=== PATIENT | male | born 1975 | race Caucasian/White ===

== ENCOUNTER 2018-04-19 06:29 | Observation (INO) ==
[2018-04-19] MEDS ORDERED: DILAUDID IV ONE ×2 (06:45→09:25)
[2018-04-19] MEDS ORDERED: ZOFRAN IV ONE (06:45)
[2018-04-19] MEDS ORDERED: NS 1,000 ML IV ONE ×2 (06:45→09:26)
--- NOTE | 2018-04-19 06:47 | PROVIDER DOCUMENTATION ---
HPI-Abdominal Pain/GI Problem - General Chief Complaint: Abdominal Pain Stated Complaint: INTESTIAL BLOCKAGE Time Seen by Provider: 04/19/18 06:41 Source: patient Allergies/Adverse Reactions: Patient Allergies Allergy/AdvReac Type Severity Reaction Status Date / Time morphine AdvReac ITCHING Verified 09/26/17 16:36 Home Medications: Home Medication List Medication Instructions Recorded Confirmed Last Taken Type Hydrocodone/APAP 7.5 mg/325 mg 1 each PO PRN PRN 09/25/17 09/25/17 1 Week Ago History [Wilson-7.5] ~09/18/17 Naproxen 500 mg PO BID PRN PRN #30 tablet 09/25/17 Unknown Rx Pregabalin [Lyrica] 0 mg PO DAILY 09/25/17 09/25/17 3 Weeks Ago History ~09/04/17 Calcium Carbonate/Vitamin D3 1 each PO DAILY #30 tablet 09/26/17 Unknown Rx [Calcium 500 + Vit D 400 Tablet] - History of Present Illness-ABD Nature of Presenting Problems: abdominal pain and no output per ostomy since yesterday. similar to previous bowel obstruction. no fever. nausea, no vomiting Abdominal Pain Onset Location: reports: generalized abdomen Pain Radiation: reports: no radiation Quality of Pain: reports: aching Severity in ED: reports: moderate Onset/Duration: reports: 24 hours ago Timing: reports: still present Activities at Onset: reports: none Exposure to sick contacts?: No Modifying Factors: improves with: nothing Associated Symptoms: denies: chest pain, fever/chills, shortness of breath Last BM: last night Rectal Bleeding: reports: none Review of Systems - Adult - REVIEW OF SYSTEMS - ADULT Constitutional: reports: no symptoms reported Cardiovascular: reports: no symptoms reported Respiratory: reports: no symptoms reported Gastrointestinal: reports: see HPI Genitourinary: reports: no symptoms reported All Other Systems: Reviewed and Negative Past History - Adult - PAST MEDICAL HISTORY-ADULT Review of Records: reports: Nursing Assessment Review, Medications Reviewed, Social history reviewed & non-contributory. Major Childhood Illnesses: reports: denies history Cardiovascular: reports: denies history Respiratory: reports: denies history Gastrointestinal: reports: colitis Musculoskeletal: reports: other (carpat tunnel syndrome) Psychiatric: reports: denies history Endocrine/Immune: reports: denies history - PRIOR SURGERIES/PROCEDURES Surgical/Procedure History: reports: other (colon reversal) - IMMUNIZATION STATUS Childhood Immunizations: See Nurse Assessment Flu Vaccine: See Nurse Assessment - FAMILY HISTORY Family History: reviewed, not pertinent - SOCIAL HISTORY Substance Use: none/never Physical Exam-General - PHYSICAL EXAM-ADULT Initial Vital Signs Reviewed: Yes - CONSTITUTIONAL General Appearance: appears well, alert - EYES Eyes: PERRL/EOMI - HEAD, EARS, NOSE, MOUTH & THROAT HENMT: moist mucous membranes, normal ENT inspection - NECK Neck: non-tender, full range of motion, supple - RESPIRATORY Respiratory: chest non-tender, lungs clear, normal breath sounds, no respiratory distress - CARDIOVASCULAR Cardiovascular: normal peripheral pulses, regular rate, rhythm, no edema, no murmur - GASTROINTESTINAL (ABDOMEN) Abdominal Exam: tenderness (moderate, diffuse), other (decreased bowel sounds. ostomy present, no stool) - MUSCULOSKELETAL Back Exam: normal inspection Extremity: normal range of motion - SKIN Integumentary: normal color, normal turgor, warm/dry - NEUROLOGIC Neurologic: no motor/sensory deficits Progress - PLAN OF CARE/RESULTS Progress/Plan/Lab Results: Vital Signs - 8 hr 04/19/18 06:34 Temperature 98.1 F Pulse Rate 107 H Respiratory Rate 20 Blood Pressure 129/93 O2 Sat by Pulse Oximetry 99 Orders Category Date Time Status NPO Diet 04/19/18 06:[address] ABD/PELVIS W/IV CONT ONLY [CT] Stat Exams 04/19/18 06:46 Ordered CBC WITH DIFF [HEME] Stat Lab 04/19/18 06:46 Uncollected COMPREHENSIVE METABOLIC PANEL [CHEM] Stat Lab 04/19/18 06:46 Uncollected PROTIME WITH INR [COAG] Stat Lab 04/19/18 06:46 Uncollected PTT [COAG] Stat Lab 04/19/18 06:46 Uncollected Hydromorphone [Dilaudid] Med 04/19/18 06:45 Once 1 mg IV NOW ONE Ns 1000 ml IV Bolus X1 Med 04/19/18 06:45 Ordered 0.9% Sodium Chloride Inj [Ns] 1,000 ml IV 999 mls/hr Ondansetron [Zofran] Med 04/19/18 06:45 Once 4 mg IV NOW ONE Result Diagrams: 04/19/18 07:30 04/19/18 07:30 - REASSESSMENT Reassessment #1 Time Reassessed: 10:31 Status: improving (CT NEG FOR BOWEL OBSTRUCTION. STILL IN MODERATE PAIN. VERY SMALL OUTPUT FROM COLOSTOMY . DISCUSSED WITH HOSPITALIST WILL ADMIT OBSERVATION STATUS) Departure - Departure Date of Disposition Decision: 04/19/18 Time of Disposition Decision: DIAGNOSIS: Abdominal pain Disposition: ADMITTED INPATIENT 09 Certified Medical Emergency: Emergent Condition: Stable Referrals and Follow-Ups: Jun Ledesma [Primary Care Provider] - - Critical Care Note This patient required my direct & personal management of CC.: No Attestation - Physician/ MICKEY Attestation Patient care was provided by Advanced Practice Provider:: No The physician spent face to face time with patient:: Yes Advanced Practice Provider documentation review:: Supervising physician onsite and consulted in the evaluation and care of this patient. The physician did have a face to face encounter with the patient.
[2018-04-19 07:43] LABS: BASO# 0.02 X1000 (0.0-0.2); BASO% 0.1 % (0.0-0.8); EOS# 0.07 X1000 (0.0-0.7); EOS% 0.5 % (0.0-10.0); HEMATOCRIT 43.5 % (42.0-52.0); HEMOGLOBIN 14.1 g/dL (14.0-18.0); IMM GRAN# 0.04 X1000 (0.0-0.04); IMM GRAN% 0.3 % (0.0-0.5); LYMPH# 1.54 X1000 (1.2-3.4); LYMPH% 10.2 % (20.5-51.1); MCHC 32.4 g/dL (33-37); MCV 83.2 FL (81-99); MONO# 0.92 X1000 (0.11-0.59); MONO% 6.1 % (1.7-9.3); NEUT# 12.45 X1000 (1.4-6.5); NEUT% 82.8 % (42.2-75.2); PLT 452 X1000 (130-400); RBC 5.23 XMIL (4.7-6.1); RDW 17.2 % (11.5-14.5); WBC 15.04 X1000 (4.8-10.8)
[2018-04-19 07:49] LABS: INR 0.99; PROTIME 13.9 Seconds (11.0-16.0)
[2018-04-19 07:50] LABS: PTT 27.4 Seconds (22.3-41.8)
[2018-04-19 08:03] LABS: AGAP 14; ALBUMIN 3.7 g/dL (3.5-5.0); ALKALINE PHOSPHATASE 99 U/L (32-122); BUN 12 mg/dL (8-22); CALCIUM 8.4 mg/dL (8.8-10.2); CHLORIDE 101 mmol/L (98-107); COSMO 273; CREATININE 0.8 mg/dL (0.7-1.2); ESTIMATED GFR > 60; GLUCOSE 119 mg/dL (70-104); GOT 13 U/L (10-34); GPT 22 U/L (10-44); POTASSIUM 3.6 mmol/L (3.5-5.1); SODIUM 136 mmol/L (136-145); TCO2 21 mmol/L (25-35); TOTAL BILIRUBIN 0.35 mg/dL (0.20-1.00); TOTAL PROTEIN 7.3 g/dL (6.3-8.3)
[2018-04-19] MEDS ORDERED: DILAUDID ONE (09:27)
--- NOTE | 2018-04-19 09:36 | Diag Imaging Result Doc PS360 ---
CT ABD/PELVIS W/IV CONT ONLY - 04/19/2018 INDICATION: sbo COMPARISON: None FINDINGS: The lung bases are clear and the heart size is normal. There is moderate right hemidiaphragm elevation. There has been subtotal colectomy and right lower quadrant ostomy. There is trace ascites. No bowel obstruction. No visible free air. The stomach and duodenum appear normal. The liver, gallbladder, spleen, pancreas, adrenals, and kidneys are normal. Urinary bladder and prostate are normal. Bony structures are intact. IMPRESSION: 1. Status post near total colectomy. No bowel obstruction. 2. Trace ascites. This exam was performed using automated exposure control, adjustment of mA or kV according to patient size, and/or use of iterative reconstruction technique Electronically signed by Nelson Harris 04/19/2018 9:34 AM
--- NOTE | 2018-04-19 10:03 | Diag Imaging Result Doc PS360 ---
EXAM: CHEST-1 VIEW 04/19/2018 HISTORY: SOB TECHNIQUE: AP portable at 0948 COMMENT: The inspiration is suboptimal. Compared to 09/26/2017 otherwise there has been no significant change. IMPRESSION: No evidence of acute disease. Electronically signed by Brady Emerson 04/19/2018 10:00 AM
[2018-04-19 10:15] LABS: URINE SOURCE CLEAN CATCH
[2018-04-19 10:19] LABS: BILIRUBIN URINE NEGATIVE (NEGATIVE); BLOOD URINE NEGATIVE (NEGATIVE); COLOR YELLOW; GLUCOSE URINE NEGATIVE (NEGATIVE); KETONE URINE NEGATIVE (NEGATIVE); LEUKOCYTES URINE NEGATIVE (NEGATIVE); NITRITE URINE NEGATIVE (NEGATIVE); PH URINE 5.5; PROTEIN URINE TRACE mg/dL (NEGATIVE); TURBIDITY URINE CLEAR (CLEAR); UROBILINOGEN URINE NORMAL (NORMAL)
[2018-04-19 10:20] LABS: UR EPITHELIAL CELLS <10 /HPF (<10); URINE BACTERIA NEGATIVE /HPF; URINE RBC <10 /HPF (<10); URINE WBC <10 /HPF (<10)
[2018-04-19] MEDS ORDERED: ZOFRAN IV PRN (11:51)
[2018-04-19] MEDS ORDERED: SODIUM CHLORIDE 0.9% INJ SCH (12:00)
[2018-04-19] MEDS ORDERED: PROTONIX IV SCH (12:00)
[2018-04-19] MEDS ORDERED: SOLU-MEDROL IV ONE (12:24)
[2018-04-19] MEDS: DILAUDID IV PRN ×2 (12:39→16:11)
--- NOTE | 2018-04-19 12:53 | HISTORY AND PHYSICAL ---
HISTORY OF PRESENT ILLNESS: Mr. Gay has had multiple surgeries and ileostomy pouch revisions and he has had frequent symptoms of small-bowel obstruction. I am not sure whether he has ulcerative colitis or Crohn's disease or an intermediate between them. He feels like he is having more abdominal pain and not much production out of his ileostomy bag, and so concerned about obstruction. He just subjectively feels bad. It usually starts with abdominal pain, and then a lot of cramping and then no bowel movement. He does not want to go through surgery again, but right now he is not on any active medication or therapy for his inflammatory bowel, so we are going to put him in the hospital and try to be conservative, give him fluids. I will start him on some steroids. I want to get Gastroenterology involved and see if there is anything we can do to help. We will check a CRP. We will check other lab and try and maximize his electrolytes and see. At this point, I do not think he needs an NG suction. We will just put him on clear liquids and see if his bowels will open, some of the inflammation go down. His abdominal pelvic and CT, he is status post a near total colectomy. He has some trace ascites, but you can see there is some fluid and signs of inflammation. PAST MEDICAL HISTORY: As far as past medical history, he really does not have any medical history that he reports. He does not admit to any blood pressure problems or cholesterol or diabetes. MEDICATION AT HOME: Lyrica. Naproxen. Hydrocodone. Calcium with vitamin D. FAMILY HISTORY: Noncontributory. He does not know of anybody with inflammatory bowel disease. SOCIAL HISTORY: He is working, has been off work because of abdominal pain and complications. REVIEW OF SYSTEMS: No weight gain or loss reported. No fever or chills, although he feels like he has had subjective sweats and subjective fever. OBJECTIVE: ENT: Oral and nasal mucosa unremarkable. No thyromegaly. Neck: Supple. No cervical, supraclavicular or axillary adenopathy. Eyes: Pupils are equal. No distended neck veins. Lungs: Clear in all lung sanders. Cardiovascular: Regular rhythm and rate without murmur or S3. Abdomen: Soft. He does have positive bowel sounds. There is a little bit of output in his ileostomy bag. Extremities: Without edema. ASSESSMENT AND PLAN: Inflammatory bowel disease, nonspecific. He is status post almost total colectomy. He has an ileostomy pouch. He appears to have inflammatory flare. I will put him on some steroids, ask Dr. Rasheed to help. He will need a field account director to see if we can treat him medically. Note he does have an elevation in his white count 15,040, hematocrit 43, platelet count 452,000. Electrolytes were unremarkable. Sodium 136, potassium 3.6, chloride 101, BUN 12, creatinine 0.8. Liver enzymes normal. AST 13, ALT 22, total protein 7.3, ProTime is 13.9. Urinalysis was really unremarkable. Chest x-ray, no evidence of acute disease. Lung sanders are clear. cc: Dariel Escudero MD
--- NOTE | 2018-04-19 12:58 | GENERAL SURGERY CONSULTATION ---
DATE: 04/19/2018 REASON FOR CONSULTATION: Consult concerning abdominal pain and possible bowel obstruction. HISTORY OF PRESENT ILLNESS: A 42-year-old gentleman with a complicated history of either Crohn's or ulcerative colitis, who has had abdominal pain and multiple surgeries. All these surgeries apparently had been done in [place] with colorectal surgeon. They included a total abdominal colectomy and J-pouch and essentially reversal of J-pouch. He has had previous bowel obstructions and says he is presenting similar to a bowel obstruction. He has had decrease in his ileostomy output. He still reports abdominal pain. It has been going on for 24 hours. He did have a CT scan that showed no obvious obstruction, but some trace ascites. PAST MEDICAL HISTORY: 1. Colitis. 2. Possible Crohn's versus ulcerative colitis. PAST SURGICAL HISTORY: 1. Total abdominal colectomy, multiple abdominal surgeries. 2. Carpal tunnel release. HOME MEDICATIONS: 1. Lyrica. 2. Naproxen. 3. Hydrocodone. 4. Calcium. ALLERGIES: Morphine causes itching. FAMILY HISTORY: Reviewed with patient, noncontributory. SOCIAL HISTORY: No substance abuse. REVIEW OF SYSTEMS: A full 10 point review of systems obtained, negative as specified in HPI. PHYSICAL EXAMINATION: Vital Signs: Patient is currently afebrile. Heart rate 107, blood pressure 129/93. General: No acute distress. HEENT: Normocephalic, atraumatic. Pupils equal, round, reactive to light. Mucous membranes moist, oropharynx benign. Neck: Supple. Trachea midline. Cardiovascular: Some mild tachycardia. Lungs: Grossly clear. Abdomen: Soft. Ostomy appears viable. There is some minimal output. He does have a midline incision that had some healing still to go but is still has a hypertrophic scar to it. Some tenderness diffusely but no peritoneal signs. Extremities: Moves all extremities. Neurologic: Grossly intact. Skin: No signs of jaundice. Vascular: All extremities perfused. LABORATORY: White blood cell count 15, hematocrit 43, platelet count 452,000. Remainder of labs reviewed. CT scan independently reviewed and radiology report reviewed. It looks like he might have some thickening of the small bowel to suggest maybe some enteritis. There is some ascites which may be causing the enteritis like picture. ASSESSMENT AND PLAN: A 42-year-old with colitis with possible bowel obstruction versus colitis flare. Abdominal pain at this time, we will treat him like a bowel obstruction. Keep him NPO, give him IV fluids. We will get GI to see him for possible steroids and/or Crohn's treatment. At this point, we will try to hold off on any kind of surgical intervention. The patient is in agreement with this. He does not want any surgical intervention so we will monitor him. I appreciate the consult. cc: Hector Mandel MD
[2018-04-19 14:19] LABS: TSH 1.04 uIUmL (0.27-4.20)
--- NOTE | 2018-04-19 15:57 | Diag Imaging Result Doc PS360 ---
LOOPOGRAM W S/I - 04/19/2018 INDICATION: stricture/perf jose terminal ileum TECHNIQUE: Total fluoroscopy time was one minute 40 seconds. 19 images were obtained. COMPARISON: CT from earlier today FINDINGS: A Tripp catheter was placed into the ileostomy. Water-soluble contrast was infused by syringe. This demonstrates normal distal small bowel. There is no evidence of stricture or mass. IMPRESSION: Negative exam. Electronically signed by Nelson Harris 04/19/2018 3:55 PM
[2018-04-19 18:34] VITALS: BP 127/78
--- NOTE | 2018-04-19 19:13 | DISCHARGE SUMMARY ---
ADMISSION DATE: 04/19/2018 DISCHARGE DATE: 04/19/2018 DISCHARGE SUMMARY: Mr. Gay was admitted earlier today. Family doctor is Dr. Jun Ledesma. He has had multiple surgeries, including ileostomy pouch revisions and he has had frequent symptoms of small-bowel obstruction, and presented with more concern that he is having small bowel obstruction. He has inflammatory bowel disease somewhere between Crohn's and ulcerative colitis, so he was very uncomfortable, concerned about his ileostomy output although he was making some output. Surgery had seen him and he agreed and understood to be admitted to the hospital. We are going to try and put him on some steroids and get GI to see if it could help. He got up to the floor a couple of hours later and was very upset and in his words, he claimed he did not understand he would be admitted. He did not want to take steroids, he did want to take medications and he wanted to go home. He felt like he had cleared up, so I discharged him. I will discharge him from the hospital. He will continue his current medications and which I do not think he brought any medications in. He does not want to take any steroids and he does not want any Protonix, so I will discharge him home. cc: Dariel Escudero MD MTDD
[2018-04-19] MEDS ORDERED: SOLU-MEDROL IV SCH (20:00)
--- NOTE | 2018-04-19 22:26 | CONSULTATION ---
DATE OF CONSULTATION: 04/19/2018 CONSULTING PHYSICIAN: Dr. Dariel Escudero. REASON FOR CONSULT: Was abdominal pain. HISTORY: This is a 42-year-old gentleman who has history of inflammatory bowel disease. It was not clear whether he has ulcerative colitis or Crohn disease. He had not seen a metal forger's assistant since 1997. It was then it was decided that he had to have total colectomy. In fact, he underwent total colectomy with J-pouch by Dr. Ledesma. The patient reports that since then he has had multiple abdominal surgeries for different reasons which included fistulas, nonhealing incisions and even pouchitis. In December he had to have his pouch removed and ended up having a permanent ileostomy and he did fine until couple days ago he started having some abdominal discomfort. He noticed that he was unable to have good output from the ileostomy. However he has not noticed any blood or mucus and did not notice any swelling. Again he did had did not have "appropriate" output. He in fact tried to pass some cord into the ileostomy to stimulate where he could go more. He came to the emergency room with these complaints. He denies any fever or chills. His appetite is good. He is eating well. He has not lost any weight and he has not had any discharge from his anal stump. He denies dysuria, polyuria or hematuria. PAST MEDICAL HISTORY: Nothing significant except for history of inflammatory bowel disease and status post multiple surgeries. MEDICATIONS: Prior to hospitalization he was on [place], Lyrica and naproxen. He also takes calcium with vitamin D. ALLERGIES: Claims to be allergic to morphine which causes him to itch. SOCIAL HISTORY: He is single, lives by himself. He does not smoke. Drinks occasionally, does not use illicit drugs. FAMILY HISTORY: No history of colon cancer, stomach cancer, pancreatic cancer, kidney disease or colitis in the family. REVIEW OF SYSTEMS: As per HPI as above. EXAMINATION: Very pleasant white male is lying in bed. He is conscious, alert, appears to be in no distress.Vitals: The patient is afebrile 98.1 degree Fahrenheit, pulse about 95 per minute, breathing at 21, blood pressure was 131/89. HEENT: Head is atraumatic, normocephalic conjunctivae is normal. Sclerae anicteric. Nares are patent. No discharge. Buccal mucosa is moist. Throat is normal. Neck: Supple. No lymphadenopathy, thyromegaly. Chest: Bilaterally symmetrical. It is moving with respirations. Breath sounds audible bilaterally. No rhonchi or crepitations could be heard. Heart: S1, S2 audible. No murmur could be appreciated. Abdomen: Has got ileostomy in the right side. The stoma appears to be pink and healthy. There is tenderness all over the abdomen. He is guarding. There is surgical scar kim in the abdomen, has got mild hyperemia in the middle of the abdomen. Bowel sounds are audible. No pedal edema, cyanosis, clubbing was noted. MANPOWER DEVELOPMENT SPECIALIST MANAGER: Grossly intact. No sensory or motor deficit. LABORATORIES: Reviewed which showed hemoglobin [*] 15.04, hemoglobin 14.1, hematocrit 43.5, MCV was 83.2, platelets were 452,000. PT 13.9, INR 0.99, PTT was 27.4. Sodium 136, potassium 3.6, chloride 101, bicarb 21, BUN is 12, creatinine 0.8. Transaminases are normal. B12 and folate were low. CT scan of the abdomen reviewed that shows surgical changes from his total colectomy, there was trace ascites noted. IMPRESSION: Abdominal pain, poor ileostomy output, question of possible partial bowel obstruction from adhesion. However instrumentation by the patient is worrisome since he has got generalized tenderness, concerned about possible air or again partial obstruction. He was examined by the ostomy nurse Paula and irrigation was done, did get some output but not much fecal matter. I did proceed with a barium enema through the ostomy with Gastrografin water-soluble contrast and it did not show any evidence of obstruction or a mass. No leakage was noted. PLAN: Would be to continue symptomatic treatment and observe him overnight. Not sure as to whether he had ulcerative colitis or Crohn disease we lack all the records. I would try to get the records from [place] and depending on those will decide further plan or treatment. In the meantime will check C-reactive protein level and also test stool for calprotectin. I have explained the findings and plan to the patient. He understands. All his pertinent questions answered. cc: Benjamín Rasheed MD
== END 2018-04-19 19:43 | disposition home or self-care (01) ==
LOC: ED 06:29 → EDIPHOLD 06:29 → 3N 17:40
PROVIDERS: ATTEND Emergency Medicine
CPT/HCPCS: 50690; 71010; 71045; 74177; 74425; 80053; 81001; 82607; 82746; 84443; 85025; 85610; 85651; 85730; 86140; 96374; 96375; 96376; 99285; C9113; J1170; J2405; J2930; J7030; Q9966; Q9967; S0164

== ENCOUNTER 2019-06-14 00:57 | Inpatient (IN) ==
[2019-06-14] MEDS ORDERED: SODIUM CHLORIDE 0.9% INJ ONE (01:34)
[2019-06-14] MEDS ORDERED: PHENERGAN IV ONE (01:34)
[2019-06-14 03:07] LABS: BASO# 0.02 X1000 (0.0-0.2); BASO% 0.2 % (0.0-0.8); EOS# 0.05 X1000 (0.0-0.7); EOS% 0.4 % (0.0-10.0); HEMATOCRIT 41.8 % (42.0-52.0); HEMOGLOBIN 14.9 g/dL (14.0-18.0); IMM GRAN# 0.06 X1000 (0.0-0.04); IMM GRAN% 0.5 % (0.0-0.5); LYMPH% 10.5 % (20.5-51.1); MCHC 35.6 g/dL (33-37); MCV 84.1 FL (81-99); MONO# 1.17 X1000 (0.11-0.59); MONO% 10.3 % (1.7-9.3); MPV 9.4 FL (7.4-10.4); NEUT# 8.91 X1000 (1.4-6.5); NEUT% 78.1 % (42.2-75.2); PLT 429 X1000 (130-400); RBC 4.97 XMIL (4.7-6.1); WBC 11.41 X1000 (4.8-10.8)
[2019-06-14] MEDS ORDERED: DEMEROL IM ONE ×2 (03:30→06:52)
[2019-06-14 03:50] LABS: URINE SOURCE CLEAN CATCH
[2019-06-14 03:50] LABS: AGAP 14; ALBUMIN 3.7 g/dL (3.5-5.0); ALKALINE PHOSPHATASE 81 U/L (32-122); AMYLASE 223 U/L (20-200); BUN 19 mg/dL (8-22); CALCIUM 8.1 mg/dL (8.8-10.2); CHLORIDE 92 mmol/L (98-107); COSMO 257; CREATININE 0.6 mg/dL (0.7-1.2); ESTIMATED GFR > 60; GLUCOSE 115 mg/dL (70-104); GPT 29 U/L (10-44); LIPASE 651 U/L (13-60); POTASSIUM 5.2 mmol/L (3.5-5.1); SODIUM 126 mmol/L (136-145); TCO2 20 mmol/L (25-35); TOTAL PROTEIN 7.1 g/dL (6.3-8.3)
[2019-06-14 03:51] LABS: GOT 39 U/L (10-34)
[2019-06-14 03:53] LABS: BILIRUBIN URINE NEGATIVE (NEGATIVE); BLOOD URINE SMALL (NEGATIVE); COLOR YELLOW; GLUCOSE URINE NEGATIVE (NEGATIVE); KETONE URINE 20 mg/dL (NEGATIVE); LEUKOCYTES URINE NEGATIVE (NEGATIVE); NITRITE URINE NEGATIVE (NEGATIVE); PROTEIN URINE 30 mg/dL (NEGATIVE); SP GRAVITY URINE 1.033; TURBIDITY URINE HAZY (CLEAR); UROBILINOGEN URINE NORMAL (NORMAL)
[2019-06-14 03:55] LABS: UR EPITHELIAL CELLS <10 /HPF (<10); URINE BACTERIA NEGATIVE /HPF; URINE RBC <10 /HPF (<10); URINE WBC <10 /HPF (<10)
[2019-06-14] MEDS ORDERED: COMPAZINE IV ONE (06:25)
[2019-06-14] MEDS ORDERED: NS 1,000 ML IV ONE (06:26)
[2019-06-14 07:26] LABS: UR AMPHETAMINES QUAL NONE DETECTED (NONE DETECT); UR BARBITUATES QUAL NONE DETECTED (NONE DETECT); UR BENZODIAZEPIN QUAL NONE DETECTED (NONE DETECT); UR CANNABINOIDS QUAL NONE DETECTED (NONE DETECT); UR COCAINE QUAL NONE DETECTED (NONE DETECT); UR METHADONE QUAL NONE DETECTED (NONE DETECT); UR METHAMPHETAMINE QUAL NONE DETECTED (NONE DETECT); UR OPIATES QUAL NONE DETECTED (NONE DETECT); UR OXYCODONE QUAL NONE DETECTED (NONE DETECT); UR PCP QUAL NONE DETECTED (NONE DETECT); UR PROPOXYPHENE QUAL NONE DETECTED (NONE DETECT); UR TCA QUAL NONE DETECTED (NONE DETECT)
--- NOTE | 2019-06-14 07:43 | Diag Imaging Result Doc PS360 ---
EXAM: ABDOMEN FLAT/UPRIGHT - 06/14/2019 HISTORY: abdominal pain TECHNIQUE: Supine and upright abdomen COMPARISON: None. FINDINGS: The bowel gas pattern is nonspecific, with relative paucity of visible bowel gas. There is no substantial gaseous bowel distention identified. There is no free air identified. There are surgical clips and small surgical mayte noted. IMPRESSION: Nonspecific bowel gas pattern. Electronically signed by Shantanu Melendez 06/14/2019 7:40 AM
--- NOTE | 2019-06-14 07:52 | Diag Imaging Result Doc PS360 ---
EXAM: CT ABD/PELVIS W/IV CONT ONLY - 06/14/2019 HISTORY: pancreatitis TECHNIQUE: CT abdomen/pelvis with intravenous contrast COMPARISON: 04/13/2019 FINDINGS: The visualized lung bases appear clear except for mild dependent atelectasis. There are stable hepatomegaly. There is no focal liver lesion identified. The spleen is unremarkable. There is stable 1.2 cm left adrenal nodule. The right adrenal gland is unremarkable. There is possibly mild edema at the pancreatic head region, which may relate to mild pancreatitis. There is no evidence of pancreatic necrosis or pseudocyst. There are no calcified gallstones or pericholecystic inflammation identified. The bilateral kidneys enhance homogeneously. There is no hydronephrosis. There are postsurgical changes of colectomy, with right lower quadrant ostomy. There is no evidence of bowel obstruction. There is no free air, substantial free fluid, or abscess identified. IMPRESSION: Possible mild pancreatitis. No evidence of pancreatic necrosis or pseudocyst. Stable hepatomegaly. No evidence of focal liver lesion. Stable 1.2 cm left adrenal nodule. Postsurgical changes of colectomy. No bowel obstruction. The on-call radiologist provided preliminary results at 5:40 AM on 06/14/2019. This exam was performed using automated exposure control, adjustment of mA or kV according to patient size, and/or use of iterative reconstruction technique. Electronically signed by Shantanu Melendez 06/14/2019 7:49 AM
[2019-06-14] MEDS ORDERED: ZOSYN 3.375 GM in NS 50 ML IV ONE (08:31)
[2019-06-14] MEDS ORDERED: SODIUM CHLORIDE 0.9% INJ PRN (10:10)
[2019-06-14] MEDS ORDERED: ZOFRAN IV PRN (10:10)
[2019-06-14] MEDS: DILAUDID IV PRN ×4 (10:49→21:15)
[2019-06-14] MEDS: PHENERGAN IV PRN (11:05)
[2019-06-14] MEDS: NS 1,000 ML IV SCH ×2 (11:05→16:21)
--- NOTE | 2019-06-14 11:49 | HISTORY AND PHYSICAL ---
PRIMARY CARE PROVIDER: None. GI SPECIALIST: Jun Ledesma. CHIEF COMPLAINT: Abdominal pain. HISTORY OF PRESENT ILLNESS: Mr. Gay is a 44-year-old gentleman with a past medical history of inflammatory bowel disease, ulcerative colitis or Crohn's. Currently followed by Jun Ledesma. He had a total colectomy in the with a J-pouch with Dr. Ledesma. He reports he has had multiple bowel obstructions throughout the years. He reports symptoms started yesterday afternoon with a dull abdominal cramping with some associated nausea and vomiting. He feels that his stoma has stopped working altogether. He has had no output since midnight. He tried to irrigate himself with no relief. As he has been told in the past, he also drank milk that he reports will come out his stoma white. He has not passed the milk yet. Workup in the ED does not really reveal a bowel obstruction. It does reveal some possible mild pancreatitis. He does have elevated amylase and lipase levels. His bowel sounds are extremely quiet. His stoma is red. However, there is no output in his bag. He will be transferred over to [place] for GI consult and continue on aggressive IV hydration as well as Zosyn and NPO status. PAST MEDICAL HISTORY: Really denies anything except for GI. PAST SURGICAL HISTORY: Multiple abdominal surgeries which include a total colectomy with a J- pouch as well as many other multiple abdominal surgeries for fistula, small bowel, removal of lysis of adhesions. ALLERGIES: To morphine that causes itching. He reports no problems with Dilaudid. MEDICATIONS: Home medications are being compiled. SOCIAL HISTORY: No tobacco, alcohol or illicit drug use. FAMILY HISTORY: Colon cancer. Stomach cancer, pancreatic cancer, kidney disease or colitis in the family. REVIEW OF SYSTEMS: The patient denies any headache, fever, chills, cough, sore throat, flu-like symptoms or being around anyone who has had flu-like symptoms. No recent travel. He has not been around anybody who has had any recent travel. No chest pain. No shortness of breath. No palpitations. PHYSICAL EXAMINATION: VITAL SIGNS: Temperature was 98 degrees, heart rate 84, respirations 26, blood pressure 133/91, O2 is 96% on room air. GENERAL: Mr. Gay is a pleasant 44-year-old male who is actually sitting up beside the bedside in a flat back chair, complaining of abdominal pain but in no acute distress. HEENT: Atraumatic, normocephalic. PERRL. NECK: Supple. Trachea midline. CARDIOVASCULAR: S1, S2 appreciated. No murmurs, gallops, rubs noted. RESPIRATORY: Lung sounds clear bilaterally. GI: Extremely tender throughout all quadrants to palpation. He has quiet bowel sounds. He does have a stoma noted to the right. It is beefy red. There is no output noted in the bag.Extremities: Negative for edema. Bilateral pedal pulses are pounding. DIAGNOSTIC DATA: Possible mild pancreatitis noted on his abdomen and pelvis CT. Abdominal x-ray showed nonspecific bowel gas pattern. LABORATORY DATA: White count 11, hemoglobin and hematocrit 14 and 41, platelet count 429,000. Sodium 126, potassium 5.2, chloride 92, carbon dioxide of 20, BUN 19, creatinine 0.6, blood glucose is 115. T bilirubin was 0.4, AST was 39. Amylase 233, lipase 651. Urinalysis is negative. Drug screen negative. ASSESSMENT AND PLAN: 1. Possible mild pancreatitis. He does have an elevated amylase and lipase. We will continue treatment as such, NPO, aggressive IV hydration and Zosyn. We will consult GI. He has no history of acute pancreatitis. He denies any alcohol consumption. We will check a lipid profile in the a.m. as well, as well as repeat his amylase and lipase. 2. Questionable bowel obstruction versus nonfunctioning stoma. We will consult GI, keep him n.p.o., continue aggressive IV hydration. We will provide him with antiemetics and pain regimen. 3. Nausea and vomiting secondary to #1 and 2. 4. Previous multiple abdominal surgeries, status post total colectomy with J-pouch. He has not had any output from his stoma since midnight. He has tried to irrigate himself with no relief as well as drinking milk that he states usually comes out white. He has not passed the milk yet per his report. 5. Further recommendation to follow physician evaluation, laboratory and diagnostic data. Dictated by JUAN Romo for Cash Caro MD cc: MD Dr. Jun Luke
--- NOTE | 2019-06-14 15:22 | GASTROENTEROLOGY CONSULTATION ---
DATE: 06/14/2019 REASON FOR CONSULT: Possible GI obstruction, stoma not moving, no output/pancreatitis. HISTORY OF PRESENT ILLNESS: Mr. Gay is a 44-year-old male who has a past medical history of inflammatory bowel disease. He is currently seeing Dr. Jun Ledesma. The patient had a total colectomy done in the with a J- pouch with Dr. Ledesma. The patient has had multiple abdominal surgeries for different reasons including the fistulas, nonhealing incisions, and pouchitis. The patient came in yesterday complaining that his ostomy site was not having any output. He had changed the ostomy bag, but he did not see any output coming out. The patient tried to irrigate himself, but he did not get any relief. The patient was in the [facility] and then was sent to [facility]. He has complained about abdominal pain which is generalized. He has been complaining of nausea and vomiting. He is stating that this has been going on for the last 3 weeks onwards. The patient's lipase and amylase have been elevated. MEDICAL HISTORY: Inflammatory bowel disease. PAST SURGICAL HISTORY: The abdominal surgeries including total colectomy with a J-pouch, multiple abdominal surgeries for fistulas, small-bowel, removal/lysis of adhesions. SOCIAL HISTORY: The patient is single. Denies any tobacco, alcohol, or illicit drug use. FAMILY HISTORY: Significant for colon cancer, stomach cancer, pancreatic cancer, kidney disease, and colitis. ALLERGIES: The patient is allergic to morphine. HOME MEDICATIONS: To be reconciled. REVIEW OF SYSTEMS: As per HPI. Otherwise, 12 point review of systems is negative. PHYSICAL EXAMINATION: Vital Signs: Temperature 98.6 degrees, pulse 86, respirations 18, blood pressure 140/87, oxygen saturation 95% on room air. The patient's weight is 203 pounds. BMI is 26.9 kg/m2. General: He is alert, oriented x3, in no acute distress. HEENT: Pale conjunctivae. No icterus. Neck: Supple. Lungs: Clear to auscultation. Cardiovascular: Regular rate and rhythm. Abdomen: Tender, has an ostomy on the right side. Hypoactive bowel sounds heard in all 4 quadrants. Extremities: No clubbing, no cyanosis, no edema. Pedal pulses 2+ present bilaterally. Neurologic: He is alert, oriented x3. Nonfocal. Cranial nerves 2-12 grossly intact. LABORATORY DATA: WBC is 11.41, RBCs 4.97, hemoglobin is 14.9, hematocrit is 41.8, platelet count is 429,000. Sodium is 126, potassium is 5.2, chloride is 92, carbon dioxide 20, anion gap 14, BUN 19, creatinine 0.6, glucose is 115, calcium 8.1, total bilirubin 0.40, AST 39, ALT is 29, alkaline phosphatase is 81, amylase is 223, lipase is 651. Urinalysis showed protein of 30, ketones of 20, and small amount of blood. Toxicology report has been negative. IMAGING: Abdominal x-ray has shown nonspecific bowel gas pattern. Abdomen and pelvis CT has shown possible mild pancreatitis. No evidence of pancreatic necrosis or pseudocyst. Stable hepatomegaly. No evidence of focal liver lesions. Stable 1.2 cm left atrial nodule. Postsurgical changes of colectomy. No bowel obstruction. IMPRESSION AND PLAN: 1. Obstruction in the stoma 2. Nausea and vomiting 3. Mild pancreatitis 4. IBD s/p total colectomy s/p ostomy PLAN: Mr. Gay is a 44-year-old male with a history of IBD. GI has been consulted for his ostomy obstruction. The patient did have a little output today. He is currently receiving IV fluids normal saline at 150 mL for his nausea and vomiting. He is on Phenergan and Zofran as needed. The patient is on a bowel regimen, MiraLAX 17 grams p.o. and Colace 100 mg p.o. twice a day. He is also receiving antibiotic, Zosyn. We will continue to monitor his ostomy site. This plan was discussed with Dr. Shin. Thank you for your consult and please call us for any further questions or concerns. Dictated by JUAN Montez for Ganga Shin MD [facility]
[2019-06-14] MEDS: MIRALAX PO SCH (16:21)
[2019-06-14] MEDS: ZOSYN 3.375 GM in NS 50 ML IV SCH ×2 (16:21→21:16)
[2019-06-14] MEDS: COLACE PO SCH (21:15)
--- NOTE | 2019-06-14 23:49 | HISTORY AND PHYSICAL ---
HISTORY OF PRESENT ILLNESS: The patient presented to the hospital with abdominal pain, this is very similar to his previous small-bowel obstruction episodes. He states that he has had no output out of his stoma, and it has not been moving for the past 12 hours. He states that he had sudden onset of intense abdominal cramping and pain. He denies any blood. PLAN: We are going to admit him to the hospital, transfer her to [facility] for GI and possibly surgery input. Please see full note. cc: Cash Caro MD MTDD
[2019-06-15] MEDS: DILAUDID IV PRN ×6 (00:27→21:58)
[2019-06-15] MEDS: NS 1,000 ML IV SCH ×4 (03:09→22:13)
[2019-06-15] MEDS: ZOSYN 3.375 GM in NS 50 ML IV SCH ×3 (03:09→15:20)
[2019-06-15 07:39] LABS: BASO# 0.02 X1000 (0.0-0.2); BASO% 0.2 % (0.0-0.8); EOS# 0.22 X1000 (0.0-0.7); EOS% 2.3 % (0.0-10.0); HEMATOCRIT 42.3 % (42.0-52.0); HEMOGLOBIN 14.1 g/dL (14.0-18.0); IMM GRAN# 0.02 X1000 (0.0-0.04); IMM GRAN% 0.2 % (0.0-0.5); LYMPH# 1.33 X1000 (1.2-3.4); LYMPH% 14.1 % (20.5-51.1); MCH 28.5 PG (27-31); MCHC 33.3 g/dL (33-37); MCV 85.6 FL (81-99); MONO# 0.85 X1000 (0.11-0.59); MPV 9.6 FL (7.4-10.4); NEUT# 7.02 X1000 (1.4-6.5); NEUT% 74.2 % (42.2-75.2); PLT 311 X1000 (130-400); RBC 4.94 XMIL (4.7-6.1); RDW 14.6 % (11.5-14.5); WBC 9.46 X1000 (4.8-10.8)
[2019-06-15 08:11] LABS: AMYLASE 151 U/L (20-200); CHOLESTEROL 241 mg/dL (0-200); HDL 36 mg/dL (35-55); LIPASE 192 U/L (13-60); TRIGLYCERIDES 651 mg/dL (39-160)
[2019-06-15 08:16] LABS: AGAP 11; ALB/GLOB RATIO 0.9; ALKALINE PHOSPHATASE 76 U/L (32-122); BUN 7 mg/dL (8-22); CALCIUM 7.5 mg/dL (8.8-10.2); CHLORIDE 100 mmol/L (98-107); COSMO 269; CREATININE 0.8 mg/dL (0.7-1.2); ESTIMATED GFR > 60; GLUCOSE 90 mg/dL (70-104); GOT 32 U/L (10-34); GPT 21 U/L (10-44); MAGNESIUM 1.7 mg/dL (1.5-2.7); POTASSIUM 3.8 mmol/L (3.5-5.1); SODIUM 136 mmol/L (136-145); TCO2 25 mmol/L (25-35); TOTAL BILIRUBIN 0.97 mg/dL (0.20-1.00); TOTAL PROTEIN 6.5 g/dL (6.3-8.3)
[2019-06-15] MEDS: MIRALAX PO SCH (09:01)
[2019-06-15] MEDS: COLACE PO SCH ×2 (09:02→22:14)
[2019-06-15] MEDS ORDERED: MAGNESIUM SULFATE 2 GM/S.W.I. 2 GM/50 ML IVPB IV ONE (09:34)
[2019-06-15 10:15] LABS: HEMOGLOBIN A1C 5.5 % (4.8-6.0)
--- NOTE | 2019-06-15 12:04 | GASTROENTEROLOGY PROGRESS NOTE ---
DATE: 06/15/2019 SUBJECTIVE: Mr. Gay is a 44-year-old, male, resting in bed. The patient mentioned that his abdominal pain is better today. He has been having output from his ostomy. The patient has denied any nausea, vomiting. He is currently on a clear liquid diet. OBJECTIVE: Vital Signs: Temperature 100.7 degrees, pulse is 103, respirations 22, blood pressure 115/77, oxygen saturation is 95% on room air. The patient's weight is 203 pounds. BMI is 26.9 kg/m2. General: He is alert and oriented x3, and in no acute distress. HEENT: Pale conjunctivae. No icterus. PERRL. Neck: Supple. Lungs: Clear to auscultation. Cardiovascular: The patient is tachycardic. Abdomen: Soft, nontender, nondistended. Active bowel sounds heard in all 4 quadrants. Has an ostomy on the right side. Extremities: No clubbing, no cyanosis, no edema. Pedal pulses 2+ present bilaterally. Neurologic: He is alert and oriented x3. IMAGING AND LABORATORY DATA: WBCs are 9.46, RBCs 4.94, hemoglobin is 14.1, hematocrit is 42.3, platelet count is 311,000. Sodium is 136, potassium is 3.8, chloride 100, carbon dioxide 25, anion gap 11, BUN 7, creatinine is 0.8, glucose is 90, calcium is 7.5. Magnesium is 1.7. Total bilirubin is 0.97, AST 32, ALT 21, alkaline phosphatase 76. The patient's triglycerides are 651, his cholesterol is 241, HDL cholesterol is 36. Amylase is 51, lipase is 192. IMAGING: Abdominal x-ray yesterday showed nonspecific bowel gas pattern. Abdomen and pelvis CT yesterday showed possible mild pancreatitis. No evidence of pancreatic necrosis or pseudocyst. Stable hepatomegaly. No evidence of focal liver lesion. Stable 1.2 cm left adrenal nodule. Postsurgical changes of cholecystectomy. No bowel obstruction. IMPRESSION AND PLAN: - Pancreatitis - Hypertrigyceridemia - Constipation - Nausea and vomiting -resolved - Hyperkalemia - resolved - H/o Crohn's s/p colectomy with end-ileostomy. PLAN: Mr. Gay is a 44-year-old, male with a history of IBD with ostomy. GI has been following him for his ostomy obstruction. There was output from his ostomy. The patient has denied any nausea or vomiting. He is on clear liquids today. The patient's triglycerides are elevated. He would need an insulin drip. PCP is aware of that. He is currently receiving IV fluids, normal saline at 150 mL. For his nausea, he is on Phenergan and Zofran. He is on a bowel regimen, MiraLAX 17 grams p.o. daily and Colace 100 mg p.o. twice a day. The patient is also on antibiotic, Zosyn. We will continue to monitor the patient, and follow the plan of care per PCP. This plan was discussed with Dr. Shin. Please call us for any further questions or concerns. Dictated by JUAN Montez for Ganga Shin MD Physician Attestation I have seen and examined the patient. I have discussed and reviewed the note by Layla MARTINEZ and agree with findings and plan as documented. Hyper-TG induced pancreatitis improving. Recommend insulin drip with D5 to lower TG, insulin drip should be stopped when triglyceride levels are <500 mg/dL. Advance diet as tolerated. MTDD
--- NOTE | 2019-06-15 12:17 | Diag Imaging Result Doc PS360 ---
EXAM: CHEST-PORTABLE 06/15/2019 HISTORY: cough/fever TECHNIQUE: AP portable upright at 1150 COMMENT: There is platelike atelectasis in the right middle lobe and lower lobe which was not present on 04/19/2018. Otherwise, there has been no significant change. IMPRESSION: Right basilar atelectasis. Electronically signed by Brady Emerson 06/15/2019 12:14 PM
[2019-06-15] MEDS ORDERED: NS NEB INH SCH (19:30)
--- NOTE | 2019-06-15 19:52 | PROGRESS NOTE ---
DATE: 06/15/2019 SUBJECTIVE: The patient states that he feels much better. He wants to try and eat food. The patient was febrile early this morning with a temperature of 100.7 degrees. OBJECTIVE: T-max 100.7 degrees, blood pressure 125/72, heart rate 101, respirations 20, O2 saturations 99% on room air.General: This is a middle-aged male lying in bed in no acute distress. Heart: S1, S2. Normal. Tachycardic. Lungs: Equal air entry bilaterally. Abdomen: Positive bowel sounds. Mild epigastric tenderness. Extremities: No edema. No cyanosis. Neurologic: The patient is alert and oriented x3. LABS: White blood cell count 9.4, hemoglobin 14, hematocrit 42, platelets 311,000. Sodium 136, potassium 3.8, chloride 100, CO2 25, BUN 7, creatinine 0.8, glucose 98. A1c 5.5, triglycerides 651, cholesterol 241. Amylase 151, lipase 192, AST 32, ALT 21. Chest x-ray shows atelectasis. ASSESSMENT AND PLAN: 1. Acute pancreatitis secondary to severe hypertriglyceridemia. The patient was advised that an insulin drip would be helpful in lowering his triglycerides. However, he refused transfer to the ICU for an insulin drip, stating that he would rather take oral medications. The patient's GI complaints are improving and the lipase has trended downward. We will start the patient on fenofibrate and monitor the triglycerides closely. We will also consult with the dietitian for dietary recommendations. Gastroenterology is following. The patient remains on IV fluids. 2. Fever. We will order blood cultures. The patient is on antibiotic therapy. We will also provide the patient with an incentive spirometer. 3. Inflammatory bowel disease, status post a total colectomy. Aware. 4. Severe hypertriglyceridemia. The patient refused transfer to the ICU for an insulin drip. We will start the patient on fenofibrate. 5. Deep vein thrombosis prophylaxis. Will start the patient on Lovenox. cc: Stefanie Almaguer MD
[2019-06-15] MEDS ORDERED: LOFIBRA PO SCH (21:00)
[2019-06-15] MEDS ORDERED: LOVENOX SUBQ SCH (21:00)
[2019-06-15] MEDS: XOPENEX NEB INH SCH (21:44)
[2019-06-15] MEDS: PHENERGAN IV PRN (22:00)
[2019-06-15] MEDS: MAXIPIME 1 GM in NS 50 ML IV SCH (22:06)
[2019-06-16] MEDS: ZOSYN 3.375 GM in NS 50 ML IV SCH ×3 (00:15→08:24)
[2019-06-16] MEDS: DILAUDID IV PRN ×4 (01:30→11:12)
[2019-06-16] MEDS: NS 1,000 ML IV SCH ×2 (07:02→08:25)
[2019-06-16 07:34] LABS: HEMATOCRIT 37.5 % (42.0-52.0); HEMOGLOBIN 12.5 g/dL (14.0-18.0); MCH 29.1 PG (27-31); MCHC 33.3 g/dL (33-37); MCV 87.4 FL (81-99); MPV 9.6 FL (7.4-10.4); RBC 4.29 XMIL (4.7-6.1); RDW 14.8 % (11.5-14.5); WBC 9.54 X1000 (4.8-10.8)
[2019-06-16 08:02] LABS: AGAP 10; ALB/GLOB RATIO 0.8; ALBUMIN 2.8 g/dL (3.5-5.0); ALKALINE PHOSPHATASE 99 U/L (32-122); BUN 7 mg/dL (8-22); CHLORIDE 100 mmol/L (98-107); COSMO 272; CREATININE 0.8 mg/dL (0.7-1.2); ESTIMATED GFR > 60; GLUCOSE 98 mg/dL (70-104); GOT 19 U/L (10-34); GPT 19 U/L (10-44); POTASSIUM 3.3 mmol/L (3.5-5.1); SODIUM 137 mmol/L (136-145); TCO2 27 mmol/L (25-35); TOTAL BILIRUBIN 0.64 mg/dL (0.20-1.00); TOTAL PROTEIN 6.5 g/dL (6.3-8.3)
[2019-06-16] MEDS: MAXIPIME 1 GM in NS 50 ML IV SCH (08:25)
[2019-06-16] MEDS: COLACE PO SCH (08:25)
[2019-06-16] MEDS: MIRALAX PO SCH (08:25)
[2019-06-16] MEDS: XOPENEX NEB INH SCH (09:45)
[2019-06-16 12:13] VITALS: BP 114/71
--- NOTE | 2019-06-16 15:08 | GASTROENTEROLOGY PROGRESS NOTE ---
DATE: 06/16/2019 SUBJECTIVE: Mr. Gay is a 44-year-old, male. He was sitting at the side of the bed. The patient was complaining that he wanted to go home. He is not satisfied with the services that he is receiving. He said he was feeling better, but he still has some abdominal tenderness, and his ostomy was also giving good output. OBJECTIVE: Vital Signs: Temperature 98.2 degrees, pulse 83, respirations 19, blood pressure 114/71, oxygen saturation 96% on room air. The patient's weight is 203, BMI is 26.9 kg/m2. General: He is alert and oriented x3, in no acute distress. HEENT: Pale conjunctivae. Scleral icterus. PERRL. Neck: Supple. Lungs: Clear to auscultation. Cardiovascular: Regular rate and rhythm. Soft, tender, nondistended. Active bowel sounds heard in all 4 quadrants. Has an ostomy on the right side. Extremities: No clubbing, no cyanosis, no edema. Pedal pulses 2+ present bilaterally. Neurologic: He is alert and oriented x3. LABORATORY DATA: WBCs are 9.54, RBC is 4.29, hemoglobin is 12.5, hematocrit is 37.5, platelet count is 264,000. Sodium 137, potassium 3.3, chloride 100, carbon dioxide 27, anion gap 10, BUN 7, creatinine 0.8, glucose is 98, calcium is 8.0. Total bilirubin is 0.64, AST is 19, ALT is 19, alkaline phosphatase is 99, albumin is 2.8. IMPRESSION AND PLAN: Hypertriglyceridemia Pancreatitis Fever IBD s/p colectomy being followed by Dr Jun Ledesma. Constipation H/o Crohn's disease PLAN: Mr. Gay is a 44-year-old, male with a history of IBD with ostomy. GI has been following him for his ostomy obstruction. The patient currently has output from the ostomy. He has denied any nausea or vomiting, but complains of abdominal pain. The patient has discharge orders to go home today. We have asked the patient to follow up with his GI doctor in [place]. This plan was discussed with Dr. Trinh. Please call us for any further questions or concerns. Dictated by JUAN Montez for Gabriele Trinh MD cc: Gabriele Trinh MD I have seen and examined the patient myself and I agree with the above plan of care. Please call us with any further questions or concerns. MTDD
== END 2019-06-16 14:15 | disposition home or self-care (01) | DRG 439 ==
LOC: P.ED 00:57 → SUATTDRO 00:58 → 3N 08:54
PROVIDERS: ATTEND Internal Medicine